=== PATIENT | female | born 1985 | race Caucasian/White ===

== ENCOUNTER → 2021-02-04 | Day surgery (SDC) | payer OTHER ==
[~2021-02-04] VITALS: Ht 162.6 cm; Wt 83.9 kg
[~2021-02-04] MED LIST: MOTRIN600 MG PO; NORCO 5-325 TA1 EACH PO; ONDANSETRON ODT4 MG PO; ONDANSETRON ODT8 MG PO; PRILOSEC20 MG PO; PROTONIX 40MG T40 MG PO
[2021-02-04 09:50] LABS: HCT 42.8 % (37.0-47.0); HGB 14.1 g/dl (12.5-16.0); MCH 28.1 pg (25.0-31.0); MCHC 32.9 g/dL (32.0-36.0); MCV 85.4 fL (78.0-100.0); MPV 9.8 fL (6.0-9.5); RBC 5.01 M/uL (4.20-5.40); RDW 12.6 % (11.5-14.0); WBC 7.7 K/uL (4.0-10.5)
[2021-02-04 09:57] LABS: HCG (URINE) SCREEN NEGATIVE (NEGATIVE)
[2021-02-04 10:22] LABS: ALBUMIN 3.7 g/dL (3.4-5.0); BILIRUBIN - TOTAL 0.2 mg/dL (0.2-1.0); BUN/CREAT RATIO (CALC) 10.3 RATIO; CREATININE 0.78 mg/dL (0.51-0.95); GLOBULIN (CALCULATION) 3.6 g/dL; POTASSIUM 4.1 mmol/L (3.5-5.1); TOTAL PROTEIN 7.3 g/dL (6.4-8.2)
== END | disposition home or self-care (01) ==
LOC: FAS 07:59
PROVIDERS: Surgery
DX: K80.10 Calculus of gallbladder with chronic cholecystitis without obstruction (principal); Z79.899 Other long term (current) drug therapy
CPT/HCPCS: 36415; 74300; 80053; 84703; 93005; C1758; J1100; J1170; J1885; J2001; J2250; J2405; J2704; J2710; J3010; J7120; Q9967